=== PATIENT | female | born 1970 | race Caucasian/White ===

== ENCOUNTER 2020-09-29 15:31 | Emergency (ER) | payer BC ==
[~2020-09-29] VITALS: Ht 167.6 cm; Wt 90.7 kg
[2020-09-29 15:31] VITALS: BP_SYST 158
[2020-09-29 16:07] LABS: BASOPHILS % (AUTO) 0.5 % (0.0-2.0); EOSINOPHILS # (AUTO) 0.1 K/uL (0.0-0.4); EOSINOPHILS % (AUTO) 1.2 % (0.0-4.0); HEMATOCRIT 39.3 % (36-48); HEMOGLOBIN 13.2 g/dL (12.0-16.0); LYMPHOCYTES # (AUTO) 1.6 K/uL (1.0-5.5); LYMPHOCYTES % (AUTO) 17.5 % (20.5-51.5); MEAN CORPUSCULAR HEMOGLOBIN 28 pg (27-31); MEAN CORPUSCULAR HGB CONC 34 % (32-36); MEAN CORPUSCULAR VOLUME 82 fL (79.0-98.0); MONOCYTES # (AUTO) 0.3 K/uL (0.0-1.0); MONOCYTES % (AUTO) 3.6 % (1.7-9.3); NEUTROPHILS # (AUTO) 7.3 K/uL (1.8-7.7); NEUTROPHILS % (AUTO) 77.2 % (40.0-70.0); PLATELET COUNT (AUTO) 199 K/uL (130-430); RED BLOOD CELL COUNT(AUTO) 4.81 MIL/uL (4.2-6.2); RED CELL DISTRIBUTION WIDTH 16.8 % (9.0-15.0); WHITE BLOOD COUNT (AUTO) 9.4 K/uL (4.8-10.8)
[2020-09-29 16:34] LABS: CALCIUM 8.2 mg/dL (8.4-11.0); CREATININE 0.82 mg/dL (0.55-1.30); POTASSIUM 3.1 mmol/L (3.5-5.1)
[2020-09-29 16:39] LABS: ALBUMIN 3.7 g/dL (3.4-4.8); TOTAL BILIRUBIN 0.4 mg/dL (0.0-1.0)
[2020-09-29 16:51] LABS: INR 0.9 (0.8-1.2); PROTHROMBIN TIME 9.5 SECS (9.5-12.5)
[2020-09-29] MEDS ORDERED: ASPI-862 PO (17:22)
[2020-09-29] MEDS ORDERED: ASPIRIN 325 MG TABLET PO ONE (17:30)
[2020-09-29] MEDS ORDERED: ASPIRIN 325 MG TABLET (ECOTRIN) PO ONE (17:30)
[2020-09-29 17:40] VITALS: BP_SYST 121
== END 2020-09-29 17:41 | disposition home or self-care (01) ==
LOC: SED 15:31
DX: I31.9 Disease of pericardium, unspecified (principal); I51.9 Heart disease, unspecified; Z79.82 Long term (current) use of aspirin
CPT/HCPCS: 36415; 71045; 80053; 84484; 84703; 85025; 85610-TC; 85730-TC; 93005; 99285

== ENCOUNTER 2020-10-01 15:41 | Emergency (ER) | payer BC ==
[~2020-10-01] VITALS: Ht 167.6 cm; Wt 97.1 kg
[2020-10-01 15:41] VITALS: BP_SYST 147
[~2020-10-01 15:41] MED LIST: ASPI-862 PO
[2020-10-01 16:32] LABS: BASOPHILS # (AUTO) 0.1 K/uL (0.0-0.2); BASOPHILS % (AUTO) 1.1 % (0.0-2.0); EOSINOPHILS # (AUTO) 0.2 K/uL (0.0-0.4); EOSINOPHILS % (AUTO) 3.4 % (0.0-4.0); HEMOGLOBIN 12.3 g/dL (12.0-16.0); LYMPHOCYTES # (AUTO) 1.8 K/uL (1.0-5.5); LYMPHOCYTES % (AUTO) 24.9 % (20.5-51.5); MEAN CORPUSCULAR HEMOGLOBIN 27 pg (27-31); MEAN CORPUSCULAR HGB CONC 32 % (32-36); MEAN CORPUSCULAR VOLUME 82 fL (79.0-98.0); MONOCYTES # (AUTO) 0.3 K/uL (0.0-1.0); MONOCYTES % (AUTO) 4.5 % (1.7-9.3); NEUTROPHILS # (AUTO) 4.7 K/uL (1.8-7.7); NEUTROPHILS % (AUTO) 66.1 % (40.0-70.0); PLATELET COUNT (AUTO) 201 K/uL (130-430); RED BLOOD CELL COUNT(AUTO) 4.61 MIL/uL (4.2-6.2); RED CELL DISTRIBUTION WIDTH 17.1 % (9.0-15.0); WHITE BLOOD COUNT (AUTO) 7.1 K/uL (4.8-10.8)
[2020-10-01 17:26] LABS: ALBUMIN 3.4 g/dL (3.4-4.8); CALCIUM 8.4 mg/dL (8.4-11.0); CREATININE 0.76 mg/dL (0.55-1.30); POTASSIUM 3.5 mmol/L (3.5-5.1); TOTAL BILIRUBIN 0.2 mg/dL (0.0-1.0)
[2020-10-01] MEDS ORDERED: HYDR-4272 PO (18:04)
[2020-10-01 18:11] VITALS: BP_SYST 140
== END 2020-10-01 18:09 | disposition home or self-care (01) ==
LOC: SED 15:41
DX: I31.9 Disease of pericardium, unspecified (principal); Z79.82 Long term (current) use of aspirin
CPT/HCPCS: 36415; 71045; 80053; 83880; 84484; 85025; 93005; 99285

== ENCOUNTER 2024-04-09 10:06 | Inpatient (IN) | payer BC ==
[~2024-04-09] VITALS: Ht 167.6 cm; Wt 85.7 kg
[~2024-04-09 10:06] MED LIST changes: +HYDR-4272 PO
[2024-04-09 10:12] VITALS: BP_SYST 153; PULSE 115; RESP 24; TEMP 98; O2SAT 93
[2024-04-09 10:45] LABS: BASOPHILS # (AUTO) 0.1 K/uL (0.0-0.2); BASOPHILS % (AUTO) 0.6 % (0.0-2.0); EOSINOPHILS # (AUTO) 0.6 K/uL (0.0-0.4); EOSINOPHILS % (AUTO) 4.3 % (0.0-4.0); HEMATOCRIT 30.9 % (36-48); HEMOGLOBIN 10.9 g/dL (12.0-16.0); LYMPHOCYTES % (AUTO) 13.3 % (20.5-51.5); MEAN CORPUSCULAR HEMOGLOBIN 33 pg (27-31); MEAN CORPUSCULAR HGB CONC 36 % (32-36); MEAN CORPUSCULAR VOLUME 94 fL (79.0-98.0); MONOCYTES # (AUTO) 0.5 K/uL (0.0-1.0); MONOCYTES % (AUTO) 3.2 % (1.7-9.3); NEUTROPHILS # (AUTO) 11.5 K/uL (1.8-7.7); PLATELET COUNT (AUTO) 383 K/uL (130-430); WHITE BLOOD COUNT (AUTO) 14.7 K/uL (4.8-10.8)
[2024-04-09] MEDS: NS 1000 ML IV.SOLN IV ONE (10:58)
[2024-04-09 11:11] LABS: BILIRUBIN,URINE 1+ (NEGATIVE); COLOR,URINE YELLOW (YELLOW); GLUCOSE,URINE NEGATIVE (NEGATIVE); KETONES,URINE NEGATIVE (NEGATIVE); LEUKOCYTE ESTERASE ,URINE TRACE (NEGATIVE); NITRITE, URINE NEGATIVE (NEGATIVE); PROTEIN URINE 1+ (NEGATIVE); UROBILINOGEN,URINE 0.2 (0.2-1.0)
[2024-04-09 11:12] LABS: BLOOD, URINE TRACE (NEGATIVE); CLARITY/URINE SLIGHTLY HAZY (CLEAR)
[2024-04-09 11:15] LABS: ALANINE AMINOTRANSFERASE 55 U/L (12-78); ALBUMIN 3.5 g/dL (3.4-4.8); ANION GAP 9 (5-15); ASPARTATE AMINOTRANSFERASE 41 U/L (10-37); BILIRUBIN,DIRECT 0.4 mg/dL (0.0-0.3); CALCIUM 8.8 mg/dL (8.4-11.0); CARBON DIOXIDE 32 mmol/L (23-29); CHLORIDE 101 mmol/L (98-107); CREATININE 0.75 mg/dL (0.55-1.30); GFR AFRICAN AMERICAN 104 mL/min (>90); GLUCOSE 161 mg/dL (74-106); SODIUM SERUM 142 mmol/L (136-145); TOTAL BILIRUBIN 1.5 mg/dL (0.0-1.0); TOTAL PROTEIN, SERUM 7.9 g/dL (6.4-8.3); UREA NITROGEN, BLOOD 14 mg/dL (8-21)
[2024-04-09 11:16] LABS: GFR NON AFRICAN-AMERICAN 86 mL/min (>90)
[2024-04-09 11:17] LABS: POTASSIUM 2.8 mmol/L (3.5-5.1)
[2024-04-09 11:19] LABS: NEUTROPHILS % (AUTO) 78.6 % (40.0-70.0)
[2024-04-09] MEDS: POTASSIUM CHLORIDE 20 MEQ/PKT PACKET PO ONE (11:26)
[2024-04-09 11:33] LABS: BACTERIA,URINE None Seen /HPF (None Seen)
[2024-04-09] MEDS ORDERED: PIPERACILLIN/TAZOBACTAM 4.5 GM/VIAL (ZOSYN) IV ONE (11:46)
[2024-04-09] MEDS: PIPERACILLIN/TAZO 4.5 GM in NS 100 ML IV ONE (11:56)
[2024-04-09 11:59] LABS: INFLUENZA TYPE A Negative (NEGATIVE); INFLUENZA TYPE B NEGATIVE (NEGATIVE)
[2024-04-09] MEDS ORDERED: iohexoL 350 mgI/mL, 100 ML INFUS..BTL IV ONE (13:31)
[2024-04-09 15:29] VITALS: BP_SYST 130; PULSE 104; O2SAT 96
[2024-04-09 15:35] VITALS: O2SAT 93
[2024-04-09] MEDS: IPRATROPIUM/ALBUTEROL SULFATE 3 ML AMPUL.NEB (DUONEB) INH PRN (15:49)
[2024-04-09] MEDS ORDERED: cefTRIAXone 1 GM VIAL ONE (15:54)
[2024-04-09] MEDS: METHYLPREDNISOLONE SOD SUCC 40 MG/ML VIAL IVP ONE (16:06)
[2024-04-09] MEDS: cefTRIAXone 1 GM in D5W 50 ML IV ONE (16:07)
[2024-04-09] MEDS: AZITHROMYCIN 250 MG in NS 250 ML IV ONE (16:30)
[2024-04-09 17:42] VITALS: BP_SYST 135; PULSE 100; RESP 16; TEMP 96.7; O2SAT 94
[2024-04-09] MEDS ORDERED: AZITHROMYCIN 250 MG in NS 250 ML IV ONE (18:30)
[2024-04-09 20:02] VITALS: BP_SYST 112; PULSE 95; RESP 19; TEMP 97.3; O2SAT 94
[2024-04-09] MEDS: METHYLPREDNISOLONE SOD SUCC 40 MG/ML VIAL IVP SCH (22:12)
[2024-04-10] VITALS (9 sets, daily range): BP systolic 101–116; PULSE 90–103; RESP 16–18; TEMP 97.2–97.4; O2SAT 93–98
[2024-04-10 06:28] LABS: CALCIUM 8.9 mg/dL (8.4-11.0); CREATININE 0.71 mg/dL (0.55-1.30); POTASSIUM 3.2 mmol/L (3.5-5.1)
[2024-04-10] MEDS: cefTRIAXone 1 GM in D5W 50 ML IV SCH (08:23)
[2024-04-10 09:00] LABS: BASOPHILS # (AUTO) 0.1 K/uL (0.0-0.2); BASOPHILS % (AUTO) 0.5 % (0.0-2.0); EOSINOPHILS % (AUTO) 0.1 % (0.0-4.0); HEMATOCRIT 31.1 % (36-48); HEMOGLOBIN 10.3 g/dL (12.0-16.0); LYMPHOCYTES # (AUTO) 1.7 K/uL (1.0-5.5); LYMPHOCYTES % (AUTO) 9.9 % (20.5-51.5); MEAN CORPUSCULAR HEMOGLOBIN 31 pg (27-31); MEAN CORPUSCULAR HGB CONC 33 % (32-36); MEAN CORPUSCULAR VOLUME 92 fL (79.0-98.0); MONOCYTES # (AUTO) 0.2 K/uL (0.0-1.0); MONOCYTES % (AUTO) 1.4 % (1.7-9.3); NEUTROPHILS # (AUTO) 14.9 K/uL (1.8-7.7); NEUTROPHILS % (AUTO) 88.1 % (40.0-70.0); PLATELET COUNT (AUTO) 359 K/uL (130-430); RED BLOOD CELL COUNT(AUTO) 3.38 MIL/uL (4.2-6.2); RED CELL DISTRIBUTION WIDTH 15.5 % (9.0-15.0); WHITE BLOOD COUNT (AUTO) 16.9 K/uL (4.8-10.8)
[2024-04-10] MEDS: AZITHROMYCIN 250 MG in NS 250 ML IV SCH (10:37)
[2024-04-10] MEDS: METHYLPREDNISOLONE SOD SUCC 40 MG/ML VIAL IVP SCH (15:06)
[2024-04-11] VITALS (8 sets, daily range): BP systolic 112–135; PULSE 93–104; RESP 17–19; TEMP 97.5–98.4; O2SAT 92–99
[2024-04-11] MEDS: traZODone HCL 50 MG TABLET (DESYREL) PO PRN (01:05)
[2024-04-11 07:58] LABS: CREATININE 0.78 mg/dL (0.55-1.30); POTASSIUM 3.2 mmol/L (3.5-5.1)
[2024-04-11 08:50] LABS: HEMATOCRIT 30.6 % (36-48); HEMOGLOBIN 10.3 g/dL (12.0-16.0); MEAN CORPUSCULAR HEMOGLOBIN 31 pg (27-31); MEAN CORPUSCULAR HGB CONC 34 % (32-36); MEAN CORPUSCULAR VOLUME 90 fL (79.0-98.0); PLATELET COUNT (AUTO) 393 K/uL (130-430); RED BLOOD CELL COUNT(AUTO) 3.39 MIL/uL (4.2-6.2); RED CELL DISTRIBUTION WIDTH 15.7 % (9.0-15.0); WHITE BLOOD COUNT (AUTO) 26.9 K/uL (4.8-10.8)
[2024-04-11 08:51] LABS: ERYTHROCYTE SEDIMENTATION RATE 19 MM/HR (0-20)
[2024-04-11 10:32] LABS: BAND % (MANUAL) 5 % (0-6); BASOPHILS % (MANUAL) 0 % (0-2); EOSINOPHILS % (MANUAL) 0 % (0-7); LYMPHOCYTES % (MANUAL) 3 % (20-46); METAMYELOCYTES % 1 % (0-0); MONOCYTES % (MANUAL) 2 % (0-11)
[2024-04-11 10:34] LABS: ANISOCYTOSIS 1+; PLATELET ESTIMATE ADEQUATE (ADEQUATE); POLYCHROMASIA SLIGHT
[2024-04-11 12:06] LABS: ANTI NUCLEAR AB WITH REFLEX Negative (Negative)
[2024-04-12] VITALS (7 sets, daily range): BP systolic 113–118; PULSE 85–114; RESP 18–19; TEMP 96.8–98; O2SAT 94–97
[2024-04-12 07:46] LABS: CALCIUM 8.8 mg/dL (8.4-11.0); CREATININE 0.88 mg/dL (0.55-1.30); POTASSIUM 3.5 mmol/L (3.5-5.1)
[2024-04-12 09:00] LABS: BASOPHILS # (AUTO) 0.1 K/uL (0.0-0.2); BASOPHILS % (AUTO) 0.3 % (0.0-2.0); EOSINOPHILS % (AUTO) 0.1 % (0.0-4.0); HEMOGLOBIN 10.2 g/dL (12.0-16.0); LYMPHOCYTES # (AUTO) 2.5 K/uL (1.0-5.5); LYMPHOCYTES % (AUTO) 10.7 % (20.5-51.5); MEAN CORPUSCULAR HEMOGLOBIN 31 pg (27-31); MEAN CORPUSCULAR HGB CONC 33 % (32-36); MEAN CORPUSCULAR VOLUME 93 fL (79.0-98.0); MONOCYTES # (AUTO) 0.7 K/uL (0.0-1.0); NEUTROPHILS # (AUTO) 20.2 K/uL (1.8-7.7); PLATELET COUNT (AUTO) 372 K/uL (130-430); RED BLOOD CELL COUNT(AUTO) 3.35 MIL/uL (4.2-6.2); RED CELL DISTRIBUTION WIDTH 15.9 % (9.0-15.0); WHITE BLOOD COUNT (AUTO) 23.5 K/uL (4.8-10.8)
[2024-04-12 09:09] LABS: NEUTROPHILS % (AUTO) 85.9 % (40.0-70.0)
[2024-04-12 09:15] LABS: ERYTHROCYTE SEDIMENTATION RATE 13 MM/HR (0-20)
[2024-04-12] MEDS: guaiFENesin/DEXTROMETHORPHAN 10 ML UDC PO PRN (13:55)
[2024-04-12] MEDS: ACETYLCYSTEINE 20% 4 ML VIAL (RT) INH SCH (16:02)
[2024-04-12] MEDS: IPRATROPIUM/ALBUTEROL SULFATE 3 ML AMPUL.NEB (DUONEB) INH SCH (16:02)
[2024-04-13] VITALS (12 sets, daily range): BP systolic 125–144; PULSE 89–119; RESP 15–18; TEMP 97.7–98.6; O2SAT 93–97
[2024-04-13 07:58] LABS: ALBUMIN 3.3 g/dL (3.4-4.8); CALCIUM 8.5 mg/dL (8.4-11.0); CREATININE 0.83 mg/dL (0.55-1.30); POTASSIUM 3.7 mmol/L (3.5-5.1); TOTAL BILIRUBIN 0.5 mg/dL (0.0-1.0); TOTAL PROTEIN, SERUM 7.2 g/dL (6.4-8.3)
[2024-04-13 08:28] LABS: BASOPHILS # (AUTO) 0.1 K/uL (0.0-0.2); BASOPHILS % (AUTO) 0.3 % (0.0-2.0); HEMATOCRIT 32.1 % (36-48); HEMOGLOBIN 10.6 g/dL (12.0-16.0); LYMPHOCYTES # (AUTO) 2.3 K/uL (1.0-5.5); LYMPHOCYTES % (AUTO) 11.5 % (20.5-51.5); MEAN CORPUSCULAR HEMOGLOBIN 31 pg (27-31); MEAN CORPUSCULAR HGB CONC 33 % (32-36); MEAN CORPUSCULAR VOLUME 93 fL (79.0-98.0); MONOCYTES # (AUTO) 0.6 K/uL (0.0-1.0); MONOCYTES % (AUTO) 2.9 % (1.7-9.3); NEUTROPHILS # (AUTO) 17.2 K/uL (1.8-7.7); PLATELET COUNT (AUTO) 371 K/uL (130-430); RED BLOOD CELL COUNT(AUTO) 3.46 MIL/uL (4.2-6.2); RED CELL DISTRIBUTION WIDTH 16.4 % (9.0-15.0); WHITE BLOOD COUNT (AUTO) 20.2 K/uL (4.8-10.8)
[2024-04-13 08:30] LABS: ERYTHROCYTE SEDIMENTATION RATE 10 MM/HR (0-20)
[2024-04-13 08:31] LABS: NEUTROPHILS % (AUTO) 85.3 % (40.0-70.0)
[2024-04-13 12:06] LABS: ANGIOTENSION CONVERTING ENZYME 22 U/L (14-82)
[2024-04-13] MEDS: predniSONE 20 MG TABLET PO ONE (13:46)
[2024-04-13] MEDS: predniSONE 20 MG TABLET PO SCH (22:44)
[2024-04-14] VITALS (11 sets, daily range): BP systolic 115–127; PULSE 89–108; RESP 15–20; TEMP 97.3–99; O2SAT 92–96
[2024-04-16 21:06] LABS: MYCOPLASMA PNEUMONIAE IgM 2716 U/mL (0-769)
[2024-04-17 22:08] LABS: LEGIONELLA PNEUMOPHILIA AB Reactive (Non Reactive)
[2024-04-20 02:07] LABS: COCCIDIOIDES AB IGG 0.6 IV (<=0.9); COCCIDIOIDES AB IGM 0.2 IV (<=0.9)
== END 2024-04-14 22:00 | disposition home or self-care (01) | DRG 189 ==
LOC: SED 10:06 → SMU 15:04
PROVIDERS: ADMIT Specialist; ATTEND Specialist
DX: J96.01 Acute respiratory failure with hypoxia (principal); J18.9 Pneumonia, unspecified organism; J20.9 Acute bronchitis, unspecified; R59.1 Generalized enlarged lymph nodes; R73.9 Hyperglycemia, unspecified; Z20.822 Contact with and (suspected) exposure to COVID-19; J98.4 Other disorders of lung; E87.6 Hypokalemia; Z79.899 Other long term (current) drug therapy; Z88.8 Allergy status to other drugs, medicaments and biological substances
CPT/HCPCS: 36415; 71045; 71275; 80048; 80053; 80076; 81000; 81001; 81015; 82164; 83605; 83880; 84484; 85007; 85025; 85027; 85379; 85651; 86038; 86635; 86713; 86738; 87040; 87086; 93005; 94070; 94640; 94760; 96365; 99291; J0456; J0696; J1030; J2543; J7050; J7060; J7512; J7608; Q9967